=== PATIENT | male | born 1980 | race Caucasian/White ===

== ENCOUNTER 2017-03-10 22:25 | Emergency (ER) | payer OTHER ==
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
[~2017-03-10 22:25] MED LIST: FLEXERIL PO; IBUPROFEN PO; KETOPROFEN PO; MELOXICAM15 MG PO; MOTRIN PO; NO MEDICATIONS; PENICILLIN V P250 MG PO; ULTRAM PO; VOLTAREN50 MG PO; ZOFRAN ODT4 MG/UDTAB PO
== END 2017-03-11 01:36 | disposition home or self-care (01) ==
LOC: CED 22:25
DX: S63.501A Unspecified sprain of right wrist, initial encounter (principal); S43.401A Unspecified sprain of right shoulder joint, initial encounter; S33.5XXA Sprain of ligaments of lumbar spine, initial encounter; S80.01XA Contusion of right knee, initial encounter; F17.210 Nicotine dependence, cigarettes, uncomplicated; V43.62XA Car passenger injured in collision with other type car in traffic accident, initial encounter
CPT/HCPCS: 29260; 29530; 72100; 73030; 73110; 73562; 96372; 99284; J1885